=== PATIENT | male | born 1990 ===

== ENCOUNTER 2024-01-19 13:14 | Outpatient (CLI) | payer OTHER, SELFPAY ==
--- NOTE | ~2024-01-19 | MR_ITS ---
EXAMINATION: MR lumbar spine wo con DATE: 01/19/2024 13:42 INDICATION: Lumbar radicular pain TECHNIQUE: Magnetic resonance imaging (MRI) of the lumbar spine was performed without intravenous con trast. Sequences included sagittal T2-weighted FSE, sagittal T2-weighted FS FSE, sagittal T1-weighted FSE, and axial T2-weighted FSE. COMPARISON: None FINDINGS: Alignment is normal. Postoperative change of prior L4 laminectomy and partial L3 laminectomy. Vertebral body heights are normal. Moderate disc height loss at L4-L5 with associated mild fibrofatt y and fibrovascular degenerative endplate changes. Mild disc height loss at L3-L4 and L5-S1. There ar e annular fissures at each of these levels. The more cephalad lumbar and visualized lower thoracic di scs are normal. The conus medullaris terminates at T12. There is normal signal in the caudal spinal c ord. Scarring and some fatty atrophy of the paraspinal musculature at the site of the laminectomies. The Paravertebral soft tissues are otherwise unremarkable. The following disc levels are specifically discussed: T12-L1: The disc does not extend beyond the endplate margin. There is mild bilateral facet joint oste oarthritis. There is no neural foraminal stenosis. There is no central canal stenosis. L1-L2: The disc does not extend beyond the endplate margin. There is mild bilateral facet joint osteo arthritis. There is no neural foraminal stenosis. There is no central canal stenosis. L2-L3: Small bilateral foraminal zone disc protrusions. There is mild to moderate bilateral facet john nt osteoarthritis. There is mild bilateral neural foraminal stenosis. There is no central canal steno sis. L3-L4: Disc is bulging with superimposed central annular fissure and disc protrusion. There is modera te bilateral facet joint osteoarthritis. There is mild to moderate bilateral neural foraminal stenosi s. There is moderate central canal stenosis. L4-L5: Disc is bulging with annular fissure. There is moderate bilateral facet joint osteoarthritis. There is moderate left and mild right neural foraminal stenosis. Posterior decompression with residua l mild central canal stenosis including narrowing of the left and right lateral recesses. L5-S1: Annular fissure and small right paracentral disc extrusion with disc material extending 2 mm c ephalad to the level of the inferior endplate of L5. There is a bilateral facet joint osteoarthritis. There is mild left neural foraminal stenosis. There is minimal narrowing of the left lateral recess. Otherwise no central canal stenosis. IMPRESSION: 1. L4 laminectomy and partial L3 laminectomy. 2. Moderate lumbar spondylosis with moderate central canal stenosis at L3-L4. Reviewed, dictated and finalized at location A. [facility]
== END 2024-01-19 13:15 ==
LOC: MICIMG 13:15
PROVIDERS: PCP Nurse Practitioner Family; Visit Provider Nurse Practitioner Family
DX: M47.26 Other spondylosis with radiculopathy, lumbar region (principal)
CPT/HCPCS: 72148